=== PATIENT | male | born 1975 | race Caucasian/White ===

== ENCOUNTER → 2017-07-12 | Outpatient (CLI) | payer OTHER | LOC: FIMAGING 12:35 | PROVIDERS: ATTEND Family Medicine | DX: M79.671 Pain in right foot (principal) ==

== ENCOUNTER 2017-08-06 09:45 | Emergency (ER) | payer OTHER ==
[2017-08-06 09:59] VITALS: TEMP 97.9
--- NOTE | 2017-08-06 10:23 | CPEKG ---
Heart Rate: 75 RR Interval: 800 P-R Interval: 140 QRSD Interval: 100 QT Interval: 404 QTC Interval: 452 P [place]: 53 QRS [place]: 51 T Wave [place]: 8 EKG Severity - NORMAL ECG - EKG Impression: SINUS RHYTHM Electronically Signed By: Kamini Jones 06-Aug-2017 18:40:07
[2017-08-06] MEDS ORDERED: ASPIRIN 325 MG TAB PO ONE (10:25)
[2017-08-06 10:57] LABS: % IMMATURE GRANULYOCYTES 0.5 % (0.0-1.1); ABSOLUTE IMMATURE GRANULOCYTES 0.03 10^3/uL (0.00-0.10); ADD DIFF? NO; ADD MORPH? NO; ADD SCAN? NO; ATYPICAL LYMPHOCYTE FLAG 30 (0-99); FRAGMENT RBC FLAG 0 (0-99); HEMATOCRIT 48.4 % (40.0-51.0); HEMOGLOBIN 16.6 g/dL (13.7-17.5); LEFT SHIFT FLG 0 (0-99); LIPEMIA HEMOLYSIS FLAG 90 (0-99); MEAN CELL HEMOGLOBIN 29.5 pg (27.9-34.1); MEAN CELL HEMOGLOBIN CONCENTR. 34.3 g/dL (32.4-36.7); MEAN CELL VOLUME 86.1 fL (81.5-99.8); MEAN PLATELET VOLUME 9.7 fL (8.7-11.7); PLATELET CLUMPS FLAG 0 (0-99); PLATELET COUNT 196 10^3/uL (150-400); RED BLOOD CELL COUNT 5.62 10^6/uL (4.40-6.38); RED CELL DISTRIBUTION WIDTH 12.5 % (11.5-15.2)
[2017-08-06 11:08] LABS: ANION GAP 15 mEq/L (8-16); CALCIUM 9.9 mg/dL (8.5-10.4); CARBON DIOXIDE 26 mEq/l (22-31); CHLORIDE 102 mEq/L (97-110); GLOMERULAR FILTRATION RATE > 60; GLUCOSE 99 mg/dL (70-100); POTASSIUM 4.2 mEq/L (3.5-5.2); SODIUM 143 mEq/L (134-144)
[2017-08-06 11:19] LABS: TROPONIN I < 0.012 ng/mL (0.000-0.034)
--- NOTE | 2017-08-06 11:36 | EDPHY ---
H & P Stated Complaint: Dull L sided ant CP x several days;abnl EKG 07/24;Heart feels pounding Source: Patient, Family Exam Limitations: No limitations - Personal History Current Tetanus Diphtheria and Acellular Pertussis (TDAP): Yes - Medical/Surgical History Hx Asthma: Yes Other PMH: GERD - Social History Smoking Status: Never smoked HPI/ROS: CHIEF COMPLAINT: Chest pain, palpitations HISTORY OF PRESENT ILLNESS: Patient complains of chest pain and palpitations. This originally started on Sunday after arriving to [place] from [facility]. Described more as a palpitation that he feels worse at night. It is also worse when he lays on his left side. Improves when he sits up. No exertional pain. No shortness of breath. No lower extremity erythema edema or pain. No trauma or injury. No diaphoresis. No radiating pain. He notes that at a primary care physician visit on July 14 he had a new onset bundle branch. He was referred to a field marketing manager, with whom he has an appointment on August 20. He went to urgent care today with the above complaints and the symptoms our facility with only an EKG performed. No other associated complaints or modifying factors. REVIEW OF SYSTEMS: Ten systems reviewed and are negative unless otherwise noted in the HPI PAST MEDICAL HISTORY: Seasonal allergies, reflux PAST SURGICAL HISTORY: Tonsillectomy SOCIAL HISTORY: Nonsmoker. Occasional alcohol. No illicit substance use. FAMILY HISTORY: Noncontributory EXAMINATION General Appearance: Alert, no distress Head: normocephalic, atraumatic Eyes: Pupils equal and round, no conjunctival pallor or injection ENT, Mouth: Mucous membranes moist Neck: Normal inspection, supple, non-tender Respiratory: Lungs are clear to auscultation Cardiovascular: Regular rate and rhythm. No murmur. Pulses intact distally Gastrointestinal: Abdomen is soft and nontender Back: non-tender, no bony abnormalities Neurological: A&O, nonfocal, normal gait Skin: Warm and dry, no rash Extremities: Nontender, no pedal edema Psychiatric: Mood and affect normal DIFFERENTIAL DIAGNOSES: Including but not limited to ACS, reflux, bundle-branch, conduction delay, PVCs , PE, pleurisy, pericarditis MDM: 11:35 a.m. Chest pain and palpitations over the past 3-5 days with reportedly abnormal EKG. EKG does show a right bundle branch block which is new from 2016. Vital signs stable. [place] thus I have ordered a D-dimer. I have also or chest x-ray. He is in no acute distress. 12:05 p.m. D-dimer has returned slightly elevated. I have discussed this with the patient. We discussed the risks, benefits and alternatives, and he and his spouse would like to proceed with CT scan of the chest to rule out PE. 12:50 p.m. Contacted by radiologist Dr. Ram. CT scan of the chest reveals no PE and the lungs are clear. 12:55 p.m. Patient re-evaluated. He is resting comfortably in no acute distress. Vital signs remained stable. We discussed discharge home. I recommend that he contact his primary care physician to discuss the existing cardiology appointment and potentially changing this. Also contact the field marketing manager. He is comfortable with this plan. He is to return to the ER for any exertional chest pain, radiating chest pain, sweating or nausea. He and his spouse are comfortable and he is discharged home in stable condition EKG interpretation: Dr. Jones Sinus rhythm with no acute ischemia. Bundle branch block on previous EKG is not appreciated (Josh Andres) Constitutional: Initial Vital Signs Temperature (C) 36.6 C 08/06/17 09:50 Heart Rate 75 08/06/17 09:50 Respiratory Rate 16 08/06/17 09:50 Blood Pressure 145/100 H 08/06/17 09:50 O2 Sat (%) 98 08/06/17 09:50 O2 Delivery Mode Room Air O2 (L/minute) 2 Allergies/Adverse Reactions: No Known Allergies Allergy (Unverified 08/06/17 09:59) Home Medications: Medication Instructions Recorded Omeprazole Magnesium [Prilosec Otc] 20 mg PO 08/06/17 Ranitidine HCl [Zantac 75] 75 mg PO 08/06/17 Medical Decision Making - Diagnostics EKG Interpretation: 12 lead EKG is interpreted in Trace master View by emergency department physician. (Kamini Jones) - Data Points Laboratory Results: Laboratory Results 08/06/17 10:38 08/06/17 10:38 Medications Given: Discontinued Medications Aspirin (Aspirin) 325 mg PO EDNOW ONE Stop: 08/06/17 10:26 Last Admin: 08/06/17 10:31 Dose: 325 mg Sodium Chloride (Ns) 1,000 mls @ 0 mls/hr IV EDNOW ONE; Wide Open PRN Reason: Protocol Stop: 08/06/17 12:09 Last Admin: 08/06/17 12:11 Dose: 1,000 mls Departure - Departure Disposition: Home, Routine, Self-Care Clinical Impression: Chest pain, Palpitations Condition: Good Instructions: Chest Pain (ED), Palpitations (ED) Additional Instructions: 1. Contact primary care physician 2. Contact Cardiology 3. ED precautions as discussed Referrals: BRITTANY HESS [Primary Care Provider] - As per Instructions
[2017-08-06] MEDS ORDERED: NS 1,000 ML IV ONE (12:08)
[2017-08-06] MEDS ORDERED: IOPAMIDOL (ISOVUE 370) 100 ML BTL IV ONE (12:14)
[2017-08-06 13:25] VITALS: BP 142/96; PULSE 75; RESP 20; O2SAT 95
== END 2017-08-06 13:24 | disposition home or self-care (01) ==
DX: R00.2 Palpitations (principal); R07.9 Chest pain, unspecified; J45.909 Unspecified asthma, uncomplicated; E86.9 Volume depletion, unspecified
CPT/HCPCS: Q9967

== ENCOUNTER 2017-09-27 16:28 | Emergency (ER) | payer OTHER ==
[2017-09-27] MEDS ORDERED: ONDANSETRON 4 MG/2 ML VIAL ONE (16:53)
[2017-09-27] MEDS ORDERED: NS 1,000 ML IV ONE ×2 (16:56)
--- NOTE | 2017-09-27 16:56 | EDPHY ---
H & P Stated Complaint: fever, geb abd pain, vomit, yellow watery diarrhea x24hrs, returned loving Time Seen by Provider: 09/27/17 16:56 HPI/ROS: HPI: This is a 42-year-old male who presents with Chief Complaint: fever, gen abd pain, vomit, yellow watery diarrhea x24hrs, returned loving Location: GI Quality: Nausea, vomiting, diarrhea Duration: 24 hours Signs and Symptoms:+ fever, + nausea, + vomiting, no hematemesis, no blood in stool, no abdominal bloating, + diarrhea, no back pain, no urinary symptoms, no testicular/groin pain, no indigestion, no chest pain, no shortness of breath Timing: Sudden Severity: Moderate severe Context: Patient was in [place] and yesterday evening around 7:00 p.m. eat salmon, tomatoes, salad. Within 3-4 hours he started to experience abdominal cramping, accompanied by nausea and diarrhea. A continue throughout the plane ride until he arrived back in [place]. He reports that he vomited only 1 which is a stomach contents. His diarrhea is described as yellow and watery in nature and greater than 10-15 times. He reports that he had food poisoning in 1996 that this feels similar to. No recent antibiotic use. Significant other at bedside reports that she ate at the same restaurant but had a different meal. Denies cough, chest pain, shortness of breath. Modifying Factors: Tylenol Comment: ROS: see HPI Constitutional: No fever, no chills, no weight loss Eyes: No blurred vision Respiratory: No shortness of breath, no cough Cardiovascular: No chest pain, no palpitations Gastrointestinal: No nausea, no vomiting, no diarrhea, no hematemesis, no blood in stool Genitourinary: No dysuria, no blood in urine Extremities: No myalgias, no edema Neurologic: No weakness, no numbness Skin: No rashes, no petechiae Hematologic: No bruising, no bleeding MEDICAL/SURGICAL/SOCIAL HISTORY: Medical history: Generally healthy. Does not take any regular medications. Surgical history: Denies Social history: CONSTITUTIONAL: Pleasant ill-appearing white adult male, awake and alert, no obvious distress HEENT: Atraumatic and normocephalic, PERRL, EOMI. Tympanic membranes clear. Oropharynx clear, no exudate and moist pink mucosa. Airway patent. No lymphadenopathy. No meningismus. Cardiovascular: Normal S1/S2, tachycardia, regular rhythm, without murmur rub or gallop. PULMONARY/CHEST: Symmetrical and nontender. Clear to auscultation bilaterally. Good air movement. No accessory muscle usage. ABDOMEN: Soft, nondistended, generalized nonspecific tenderness, no rebound, no guarding, no peritoneal signs, no masses or organomegaly. No CVAT. EXTREMITIES: 2/2 pulses, strength 5/5, no deformities, no clubbing, no cyanosis or edema. NEUROLOGICAL: no focal neuro deficits. GCS 15. SKIN: Warm and dry, no erythema. no rash. Good capillary refill. Source: Patient Exam Limitations: No limitations - Personal History Current Tetanus/Diphtheria Vaccine: Unsure Current Tetanus Diphtheria and Acellular Pertussis (TDAP): Unsure - Medical/Surgical History Hx Asthma: Yes Hx Chronic Respiratory Disease: No Hx Diabetes: No Hx Cardiac Disease: No Hx Renal Disease: No Hx Cirrhosis: No Hx Alcoholism: No Hx HIV/AIDS: No Hx Splenectomy or Spleen Trauma: No Other PMH: GERD - Social History Smoking Status: Never smoked Constitutional: Initial Vital Signs Temperature (C) 37.5 C 09/27/17 16:35 Heart Rate 125 H 09/27/17 16:35 Respiratory Rate 18 09/27/17 16:35 Blood Pressure 140/90 H 09/27/17 16:35 O2 Sat (%) 96 09/27/17 16:35 O2 Delivery Mode Room Air Allergies/Adverse Reactions: No Known Allergies Allergy (Verified 09/27/17 16:34) Home Medications: Medication Instructions Recorded Omeprazole Magnesium [Prilosec Otc] 20 mg PO 08/06/17 Ranitidine HCl [Zantac 75] 75 mg PO 08/06/17 Ciprofloxacin [Cipro] 500 mg PO BID #10 tab 09/27/17 Promethazine HCl 25 mg PO Q6 PRN #12 tablet 09/27/17 Medical Decision Making - Diagnostics Imaging Results: Imaging Impressions Abdomen CT 09/27/17 17:01 Impression: 1. Query mild enterocolitis. 2. Mild hepatosplenomegaly. Findings were discussed with Parisa Morillo PA-C at 18:14, on 09/27/2017. ED Course/Re-evaluation: Labs, urinalysis, CT abdomen and pelvis, stool studies, IV fluids, IV medications ordered Patient is febrile and tachycardia. Given 2 L normal saline and IV Zofran 174: Labs reviewed and showed mild leukocytosis at 12 K, total bili and unconjugated bili mildly elevated consistent with nausea vomiting. No lactic acidosis. 1817: Called by Dr. Kc who advised that CT abdomen and pelvis scan shows intraluminal fluid and distal colon changes consistent with a enteritis Given Cipro unable to give a stool sample for studies to be sent Tolerating oral fluids without difficulty. Will treat as outpatient with 5 day Cipro course. Vital signs improved upon discharge including resolution of tachycardia with IV fluids Differential Diagnosis: Abdominal pain including but not limited to appendicitis, cholecystitis, gastritis and urinary tract infection. - Data Points Laboratory Results: Laboratory Results 09/27/17 17:05 09/27/17 17:05 09/27/17 09/27/17 09/27/17 18:09 17:05 17:05 WBC 12.16 10^3/uL H 10^3/uL (3.80-9.50) RBC 5.05 10^6/uL 10^6/uL (4.40-6.38) Hgb 15.4 g/dL g/dL (13.7-17.5) Hct 42.7 % % (40.0-51.0) MCV 84.6 fL fL (81.5-99.8) MCH 30.5 pg pg (27.9-34.1) MCHC 36.1 g/dL g/dL (32.4-36.7) RDW 12.5 % % (11.5-15.2) Plt Count 163 10^3/uL 10^3/uL (150-400) MPV 9.6 fL fL (8.7-11.7) Neut % (Auto) 89.6 % H % (39.3-74.2) Lymph % (Auto) 3.4 % L % (15.0-45.0) Turner % (Auto) 6.2 % % (4.5-13.0) Eos % (Auto) 0.0 % L % (0.6-7.6) Baso % (Auto) 0.2 % L % (0.3-1.7) Nucleat RBC Rel Count 0.0 % % (0.0-0.2) Absolute Neuts (auto) 10.91 10^3/uL H 10^3/uL (1.70-6.50) Absolute Lymphs (auto) 0.41 10^3/uL L 10^3/uL (1.00-3.00) Absolute Monos (auto) 0.75 10^3/uL 10^3/uL (0.30-0.80) Absolute Eos (auto) 0.00 10^3/uL L 10^3/uL (0.03-0.40) Absolute Basos (auto) 0.02 10^3/uL 10^3/uL (0.02-0.10) Absolute Nucleated RBC 0.00 10^3/uL 10^3/uL (0-0.01) Immature Gran % 0.6 % % (0.0-1.1) Immature Gran # 0.07 10^3/uL 10^3/uL (0.00-0.10) VBG Lactic Acid Sodium 135 mEq/L mEq/L (134-144) Potassium 3.7 mEq/L mEq/L (3.5-5.2) Chloride 101 mEq/L mEq/L (97-110) Carbon Dioxide 20 mEq/l L mEq/l (22-31) Anion Gap 14 mEq/L mEq/L (8-16) BUN 12 mg/dL mg/dL (7-23) Creatinine 1.0 mg/dL mg/dL (0.7-1.3) Estimated GFR > 60 Glucose 139 mg/dL H mg/dL (70-100) Calcium 9.3 mg/dL mg/dL (8.5-10.4) Total Bilirubin 2.1 mg/dL H mg/dL (0.1-1.4) Conjugated Bilirubin 0.4 mg/dL mg/dL (0.0-0.5) Unconjugated Bilirubin 1.7 mg/dL H mg/dL (0.0-1.1) AST 40 IU/L IU/L (17-59) ALT 47 IU/L IU/L (21-72) Alkaline Phosphatase 72 IU/L IU/L (38-126) Total Protein 7.0 g/dL g/dL (6.3-8.2) Albumin 4.3 g/dL g/dL (3.5-5.0) Lipase 31 IU/L IU/L (23-300) Urine Color YELLOW Urine Appearance CLEAR Urine pH 6.0 (5.0-7.5) Ur Specific [place] > 1.035 H (1.002-1.030) Urine Protein 1+ H (NEGATIVE) Urine Ketones 1+ H (NEGATIVE) Urine Blood NEGATIVE (NEGATIVE) Urine Nitrate NEGATIVE (NEGATIVE) Urine Bilirubin NEGATIVE (NEGATIVE) Urine Urobilinogen NEGATIVE EU EU (0.2-1.0) Ur Leukocyte Esterase NEGATIVE (NEGATIVE) Urine RBC 5-10 /hpf H /hpf (0-3) Urine WBC NONE SEEN /hpf /hpf (0-3) Ur Epithelial Cells TRACE /lpf /lpf (NONE-1+) Urine Mucus TRACE /lpf /lpf (NONE-1+) Urine Glucose NEGATIVE (NEGATIVE) 09/27/17 17:05 WBC RBC Hgb Hct MCV MCH MCHC RDW Plt Count MPV Neut % (Auto) Lymph % (Auto) Turner % (Auto) Eos % (Auto) Baso % (Auto) Nucleat RBC Rel Count Absolute Neuts (auto) Absolute Lymphs (auto) Absolute Monos (auto) Absolute Eos (auto) Absolute Basos (auto) Absolute Nucleated RBC Immature Gran % Immature Gran # VBG Lactic Acid 1.5 mmol/L mmol/L (0.7-2.1) Sodium Potassium Chloride Carbon Dioxide Anion Gap BUN Creatinine Estimated GFR Glucose Calcium Total Bilirubin Conjugated Bilirubin Unconjugated Bilirubin AST ALT Alkaline Phosphatase Total Protein Albumin Lipase Urine Color Urine Appearance Urine pH Ur Specific [place] Urine Protein Urine Ketones Urine Blood Urine Nitrate Urine Bilirubin Urine Urobilinogen Ur Leukocyte Esterase Urine RBC Urine WBC Ur Epithelial Cells Urine Mucus Urine Glucose Medications Given: Discontinued Medications Acetaminophen (Tylenol) 1,000 mg PO EDNOW ONE Stop: 09/27/17 18:33 Last Admin: 09/27/17 18:37 Dose: 1,000 mg Ciprofloxacin (Cipro) 500 mg PO EDNOW ONE PRN Reason: Protocol Stop: 09/27/17 18:16 Last Admin: 09/27/17 18:29 Dose: 500 mg Sodium Chloride (Ns) 1,000 mls @ 0 mls/hr IV EDNOW ONE; Wide Open PRN Reason: Protocol Stop: 09/27/17 16:57 Last Admin: 09/27/17 17:01 Dose: 1,000 mls Sodium Chloride (Ns) 1,000 mls @ 0 mls/hr IV EDNOW ONE; Wide Open PRN Reason: Protocol Stop: 09/27/17 16:57 Last Admin: 09/27/17 17:01 Dose: 1,000 mls Ondansetron HCl (Zofran) 4 mg IVP EDNOW ONE Stop: 09/27/17 17:01 Last Admin: 09/27/17 17:00 Dose: 4 mg Departure - Departure Disposition: Home, Routine, Self-Care Clinical Impression: Travelers' diarrhea Condition: Good Instructions: Traveler's Diarrhea (ED) Additional Instructions: Please drink plenty of fluids to prevent dehydration. Take Tylenol and/or ibuprofen as needed for fever. Take complete 5 day course of ciprofloxacin. Referrals: BRITTANY HESS [Primary Care Provider] - As per Instructions Prescriptions: Ciprofloxacin [Cipro] 500 mg PO BID #10 tab Promethazine HCl 25 mg PO Q6 PRN #12 tablet PRN Reason: Nausea/Vomiting, Use 1st
[2017-09-27] MEDS ORDERED: ONDANSETRON 4 MG/2 ML VIAL IVP ONE (17:00)
[2017-09-27 17:13] LABS: % IMMATURE GRANULYOCYTES 0.6 % (0.0-1.1); ABSOLUTE IMMATURE GRANULOCYTES 0.07 10^3/uL (0.00-0.10); ADD DIFF? NO; ADD MORPH? NO; ADD SCAN? NO; ATYPICAL LYMPHOCYTE FLAG 0 (0-99); FRAGMENT RBC FLAG 0 (0-99); HEMATOCRIT 42.7 % (40.0-51.0); HEMOGLOBIN 15.4 g/dL (13.7-17.5); LEFT SHIFT FLG 20 (0-99); LIPEMIA HEMOLYSIS FLAG 90 (0-99); MEAN CELL HEMOGLOBIN 30.5 pg (27.9-34.1); MEAN CELL HEMOGLOBIN CONCENTR. 36.1 g/dL (32.4-36.7); MEAN CELL VOLUME 84.6 fL (81.5-99.8); MEAN PLATELET VOLUME 9.6 fL (8.7-11.7); PLATELET CLUMPS FLAG 10 (0-99); PLATELET COUNT 163 10^3/uL (150-400); RED BLOOD CELL COUNT 5.05 10^6/uL (4.40-6.38); RED CELL DISTRIBUTION WIDTH 12.5 % (11.5-15.2)
[2017-09-27 17:27] LABS: ALANINE AMINOTRANSFERASE 47 IU/L (21-72); ALBUMIN 4.3 g/dL (3.5-5.0); ALKALINE PHOSPHATASE 72 IU/L (38-126); ANION GAP 14 mEq/L (8-16); ASPARTATE AMINOTRANSFERASE 40 IU/L (17-59); BILIRUBIN,TOTAL 2.1 mg/dL (0.1-1.4); BILIRUBIN-CONJUGATED 0.4 mg/dL (0.0-0.5); BILIRUBIN-UNCONJUGATED 1.7 mg/dL (0.0-1.1); CALCIUM 9.3 mg/dL (8.5-10.4); CARBON DIOXIDE 20 mEq/l (22-31); CHLORIDE 101 mEq/L (97-110); GLOMERULAR FILTRATION RATE > 60; GLUCOSE 139 mg/dL (70-100); POTASSIUM 3.7 mEq/L (3.5-5.2); SODIUM 135 mEq/L (134-144)
[2017-09-27] MEDS ORDERED: IOPAMIDOL (ISOVUE-300) 100 ML BTL ONE (17:31)
[2017-09-27] MEDS ORDERED: CIPROFLOXACIN 500 MG TAB PO ONE (18:15)
[2017-09-27 18:29] LABS: COLOR YELLOW; LEUKOCYTE ESTERASE,URINE NEGATIVE (NEGATIVE); NITRITE,URINE NEGATIVE (NEGATIVE)
[2017-09-27] MEDS ORDERED: ACETAMINOPHEN 500 MG TAB PO ONE (18:32)
[2017-09-27 18:45] LABS: MUCUS TRACE /lpf (NONE-1+); WBC,URINE NONE SEEN /hpf (0-3)
[2017-09-27 19:08] VITALS: BP 133/78; PULSE 110; RESP 16; TEMP 98.8; O2SAT 93
== END 2017-09-27 19:05 | disposition home or self-care (01) ==
DX: R19.7 Diarrhea, unspecified (principal); J45.909 Unspecified asthma, uncomplicated; E86.9 Volume depletion, unspecified
CPT/HCPCS: 96374; J2405; Q9967

== ENCOUNTER → 2017-12-26 | Outpatient (CLI) | payer OTHER | LOC: FIMAGING 09:44 | PROVIDERS: ATTEND Physician Assistant | DX: R05 Cough (principal) ==